=== PATIENT | female | born 1965 | race Caucasian/White ===

== ENCOUNTER 2020-08-28 19:56 | Emergency (ER) | payer BC ==
[~2020-08-28] VITALS: Ht 172.7 cm; Wt 90.7 kg
[~2020-08-28 19:56] MED LIST: ALDACTONE25 MG PO; ANASTROZOLE1 MG PO; ATIVAN0.5 MG PO; CIPRO500 MG PO; FLAGYL500 MG PO; LORAZEPAM0.5 MG PO; LUPRON DEPOT11.25 MG IM; MINOCIN100 MG PO
--- OUTSIDE RECORDS SUMMARY | 2020-08-28 20:00 | XMS ---
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 E.Riaz VISIT COUNT (12 MO.) 1 [facility] TOTAL 1 NOTE: Visits indicate total known visits. ED/UCC VISIT TRACKING (12 MO.) 08/28/2020 19:[address] [facility] [place] TYPE: Emergency COMPLAINT: - CHEST PAIN INPATIENT VISIT TRACKING (12 MO.) No inpatient visits to display in this time frame [id number]
--- NOTE | 2020-08-29 13:34 | EKG ---
[facility] [address] [facility] [address] [place], [place] [address] Signed Normal sinus rhythm Normal ECG No previous ECGs available Confirmed by TEJAL ZULUAGA MD ([id number] on 08/29/2020 1:34:46 PM Electronically Signed By: TEJAL ZULUAGA MD 08/29/20 1334 PATIENT NAME: FAISAL CHRIS Electrocardiogram DATE OF : 65 PHYSICIAN: TEJAL ZULUAGA MD REPORT #: [id number] REPORT IS CONFIDENTIAL AND NOT TO BE RELEASED WITHOUT AUTHORIZATION
== END 2020-08-29 00:45 | disposition home or self-care (01) ==
LOC: ED 19:56
DX: R07.81 Pleurodynia (principal); Z85.3 Personal history of malignant neoplasm of breast; Z88.2 Allergy status to sulfonamides; Z79.899 Other long term (current) drug therapy; Z91.018 Allergy to other foods; Z87.891 Personal history of nicotine dependence
CPT/HCPCS: 71260; 80053; 83735; 84484; 85025; 93005; 93010; 99285-25; J2270; J2405

== ENCOUNTER 2023-02-28 16:39 | Emergency (ER) | payer OTHER, BC ==
[~2023-02-28] VITALS: Ht 172.7 cm; Wt 86.0 kg
[2023-02-28] MEDS ORDERED: ADVAIR HFA 230-12 GM INH (17:22)
[2023-02-28 21:51] VITALS: BP 98/64
== END 2023-02-28 21:52 | disposition home or self-care (01) ==
LOC: ED 16:39
DX: S00.83XA Contusion of other part of head, initial encounter (principal); W01.0XXA Fall on same level from slipping, tripping and stumbling without subsequent striking against object, initial encounter; Z87.891 Personal history of nicotine dependence; Z88.2 Allergy status to sulfonamides; Z91.09 Other allergy status, other than to drugs and biological substances; Z79.899 Other long term (current) drug therapy
CPT/HCPCS: 70450; 96374; 96375; 99284-25; J0780; J1200; J1885; J7121

== ENCOUNTER 2023-03-07 11:36 | Emergency (ER) | payer BC ==
[~2023-03-07] VITALS: Ht 172.7 cm; Wt 91.0 kg
[~2023-03-07 11:36] MED LIST changes: +ADVAIR HFA 230-12 GM INH
--- OUTSIDE RECORDS SUMMARY | 2023-03-07 11:44 | XMS ---
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 Terrance has no Care Guidelines for this patient. [facility] NOTE: Visits indicate total known visits. ED/C VISIT TRACKING (12 MO.) 03/07/2023 11:[address] [facility] [place] TYPE: Emergency COMPLAINT: - ABDOMINAL PAIN 02/28/2023 16:[address] [facility] [place] TYPE: Emergency COMPLAINT: - FALL DIAGNOSES: - Allergy status to sulfonamides - Contusion of other part of head, initial encounter - Contusion of unspecified part of head, initial encounter - Fall on same level from slipping, tripping and stumbling without subsequent striking against object, initial encounter - Headache, unspecified - Other allergy status, other than to drugs and biological substances - Other manager terminal (current) drug therapy - Personal history of nicotine dependence INPATIENT VISIT TRACKING (12 MO.) No inpatient visits to display in this time frame [email or web address]
[2023-03-07 13:01] LABS: BASOPHILS 0.6 % (0-2); EOSINOPHILS 2.5 % (0-6); HEMATOCRIT 40.3 % (35.0-50.0); LYMPHOCYTES 26.7 % (24-44); MCH 31.8 (27-36); MCHC 34.6 g/dl (30-36); MCV 91.9 fl (81-99); MONOCYTES 8.3 % (0-12); NEUTROPHILS 61.9 % (39-80); PLATELET COUNT 234 K/uL (140-440); RBC 4.39 M/ul (4.3-5.7); RDW 12.8 (10.5-15.0)
[2023-03-07 13:16] LABS: ALBUMIN 3.5 g/dL (3.4-5.0); ALBUMIN/GLOBULIN RATIO 1.25 (1.1-2.4); ANION GAP 10.9 (7-21); BILIRUBIN, TOTAL 1.5 ng/dL (0.2-1.0); BUN/CREATININE RATIO 16.03 (6.0-28.6); CALCIUM 8.7 mg/dL (8.5-10.1); CREATININE, SERUM 1.06 mg/dL (0.55-1.02); MAGNESIUM 1.9 mg/dL (1.8-2.4); POTASSIUM 3.9 mmol/L (3.5-5.1); PROTEIN, TOTAL 6.3 g/dL (6.4-8.2)
[2023-03-07] MEDS ORDERED: HYDROCODON-ACE1 EA10 PO (16:16)
[2023-03-07] MEDS ORDERED: AMOX TR-K CLV1 EAC1 PO (16:16)
[2023-03-07 17:01] VITALS: BP 108/72
== END 2023-03-07 17:02 | disposition home or self-care (01) ==
LOC: ED 11:36
PROVIDERS: Emergency Medicine
DX: K57.33 Diverticulitis of large intestine without perforation or abscess with bleeding (principal); N28.89 Other specified disorders of kidney and ureter; D68.51 Activated protein C resistance; Z88.2 Allergy status to sulfonamides; Z88.8 Allergy status to other drugs, medicaments and biological substances; Z91.048 Other nonmedicinal substance allergy status; Z87.891 Personal history of nicotine dependence; Z79.899 Other long term (current) drug therapy
CPT/HCPCS: 36415; 74177; 80053; 83735; 85025; 87045; 87046; 96375; 96376; 99284-25; J1885; J2405; J7040; Q9967

== ENCOUNTER 2024-09-07 18:55 | Emergency (ER) | payer BC ==
[~2024-09-07] VITALS: Ht 172.7 cm; Wt 86.0 kg
[~2024-09-07 18:55] MED LIST changes: +ALDACTONE100 MG PO; -ALDACTONE25 MG PO; +AMOX TR-K CLV1 EAC1 PO; +FLUTICASONE PRO16 GM NAS; +HYDROCODON-ACE1 EA10 PO; +SPIRIVA RESPIMAT4 G1 INH; +VENTOLIN HFA18 GM INH
[2024-09-07] MEDS ORDERED: DIPHTH,PERTUSS(ACELL),TET VAC 0.5 ML SYRINGE IM ONE (20:15)
[2024-09-07] MEDS ORDERED: ACETAMINOPHEN 500 MG TAB PO ONE (20:15)
[2024-09-07] MEDS ORDERED: ACETAMINOPHEN 325 MG TAB PO PRN (20:30)
[2024-09-07 21:03] VITALS: BP 132/88
== END 2024-09-07 21:03 | disposition home or self-care (01) ==
LOC: ED 18:55
DX: S01.01XA Laceration without foreign body of scalp, initial encounter (principal); W22.8XXA Striking against or struck by other objects, initial encounter; Z79.51 Long term (current) use of inhaled steroids; Z79.899 Other long term (current) drug therapy; Z88.2 Allergy status to sulfonamides; Z87.891 Personal history of nicotine dependence
CPT/HCPCS: 12002; 90471; 90715; 99283-25; A9270